=== PATIENT | female | born 1960 | race Caucasian/White ===

== ENCOUNTER 2019-01-15 11:25 | Outpatient (CLI) | payer MEDICARE, OTHER | END 2019-01-15 11:26 | disposition home or self-care (01) | LOC: DTY/OP 11:25 | PROVIDERS: ATTEND Surgery | DX: E66.01 Morbid (severe) obesity due to excess calories (principal) | CPT/HCPCS: 97802 ==

== ENCOUNTER 2020-07-18 13:49 | Outpatient (CLI) | payer OTHER | END 2020-07-18 13:50 | disposition home or self-care (01) | LOC: DTY/OP 13:49 | PROVIDERS: ATTEND Surgery | DX: E66.01 Morbid (severe) obesity due to excess calories (principal) | CPT/HCPCS: 97802 ==

== ENCOUNTER 2020-09-14 10:00 | Inpatient (IN) | payer MEDICARE, OTHER ==
[2020-09-18 10:01] VITALS: BMI 44.9
[2020-09-19] MEDS ORDERED: Heparin 5,000 UNITS/ML VIAL ONE (06:22)
[2020-09-19] MEDS ORDERED: Fentanyl 250 MCG/5 ML VIAL ONE (06:48)
[2020-09-19] MEDS ORDERED: Lidocaine 2% w/Epinephrine 1:200K 20 ML VIAL ONE (07:07)
[2020-09-19] MEDS ORDERED: Bupivacaine 0.25% HCL 30 ML VIAL ONE (07:07)
[2020-09-19] MEDS ORDERED: PROPOFOL 200 MG/20 ML VIAL ONE (07:22)
[2020-09-19] MEDS ORDERED: Dexamethasone 20 MG/5 ML VIAL ONE (07:22)
[2020-09-19] MEDS ORDERED: Lidocaine 1% PF 5 ML VIAL ONE (07:22)
[2020-09-19] MEDS ORDERED: PHENYLEPHRINE-NS 100 MCG/ML 10 ML SYRINGE ONE (07:22)
[2020-09-19] MEDS ORDERED: Ondansetron PF 4 MG/2 ML Vial ONE (07:22)
[2020-09-19] MEDS ORDERED: Rocuronium Bromide 10 MG/ML (10ML VIAL) ONE (07:22)
[2020-09-19] MEDS ORDERED: Glycopyrrolate 0.2 MG/ML 5 ML SYRINGE ONE (07:22)
[2020-09-19] MEDS ORDERED: Hydrocodone-Acetamin 15 ML UDCUP PO PRN (09:30)
[2020-09-19] MEDS ORDERED: Dextrose 5% in Water 1,000 ML IV PRN (09:30)
[2020-09-19] MEDS ORDERED: Dextrose 50% Abboject 50 ML SYRINGE SLOW IVP PRN (09:30)
[2020-09-19] MEDS ORDERED: Promethazine HCl 25 MG/ML VIAL IM PRN ×3 (09:30→10:14)
[2020-09-19] MEDS ORDERED: Ondansetron PF 4 MG/2 ML Vial IVP PRN ×2 (09:30→10:14)
[2020-09-19] MEDS ORDERED: hydrALAZINE 20 MG/ML VIAL SLOW IVP PRN (09:30)
[2020-09-19] MEDS ORDERED: diphenhydrAMINE 50 MG/ML VIAL IVP PRN ×2 (09:30→10:14)
[2020-09-19] MEDS ORDERED: Ondansetron HCl/PF 4 MG/2 ML Vial IVP PRN (09:32)
[2020-09-19] MEDS ORDERED: Promethazine HCl 25 MG/ML VIAL SLOW IVP PRN (09:32)
[2020-09-19] MEDS ORDERED: Fentanyl 100 MCG/2 ML VIAL ONE ×3 (09:34→10:37)
[2020-09-19] MEDS ORDERED: Naloxone HCl 0.4 mg/ml Vial IV PRN (10:14)
[2020-09-19] MEDS ORDERED: fentaNYL Citrate/PF 2,000 MCG in Sodium Chloride 0.9% 60 ML IV PRN (10:14)
[2020-09-19] MEDS ORDERED: diphenhydrAMINE 50 MG/ML VIAL IM PRN (10:14)
[2020-09-19] MEDS ORDERED: Zolpidem Tartrate 5 MG TAB PO PRN (10:14)
[2020-09-19] MEDS ORDERED: Communication Order-Pharmacy FS SCH (10:15)
[2020-09-19] MEDS ORDERED: Sodium Chloride 0.9% (PF) 10 ML VIAL FS PRN (10:15)
[2020-09-19] MEDS: D5 1/2 NS w/20 mEq KCL 1,000 ML IV SCH ×3 (12:55→20:42)
[2020-09-19] MEDS: Trospium 20 MG TAB PO SCH (20:28)
[2020-09-19] MEDS ORDERED: Enoxaparin Sodium 40 MG/0.4 ML SYRINGE SC SCH (21:00)
[2020-09-19] MEDS ORDERED: Montelukast Sodium 10 mg Tablet PO SCH (21:00)
[2020-09-20] MEDS: diphenhydrAMINE 25 MG CAP PO PRN ×3 (03:16→09:27)
[2020-09-20] MEDS: D5 1/2 NS w/20 mEq KCL 1,000 ML IV SCH (05:32)
[2020-09-20 05:34] LABS: #Eosinphils 0.1 thou/uL (0.0-0.7); #Lymphocytes 1.7 thou/uL (1.20-3.40); #Monocytes 1.7 thou/uL (0.11-0.59); #Neutrophils 12.5 thou/uL (1.40-6.50); %Basophils 0.1 % (0.0-1.0); %Eosinophils 0.3 % (0.0-10.0); %Lymphocytes 10.8 % (21.0-51.0); %Monocytes 10.6 % (0.0-10.0); %Neutrophils 78.1 % (42.0-75.0); Hemoglobin 12.5 g/dL (12.0-16.0); Mean Corpuscular HGB CONC 32.4 g/dL (32.0-36.0); Mean Corpuscular Hemoglobin 28.9 pg (27.0-31.0); Mean Platelet Volume 7.9 fL (7.4-10.4); Platelet Count 233 thou/uL (130-400); RBC Distribution Width 13.4 % (11.5-14.5); Red Blood Cell (RBC) Count 4.32 mill/uL (4.20-5.40)
[2020-09-20 05:50] LABS: Anion Gap 12 mmol/L (10-20); BUN (Urea Nitrogen) 16 mg/dL (9.8-20.1); Calc. Creatinine Clearance 172 mL/min (70-130); Calcium 8.4 mg/dL (7.8-10.44); Carbon Dioxide 19 mmol/L (22-29); Chloride 106 mmol/L (98-107); Glucose 100 mg/dL (70-105); Potassium 4.6 mmol/L (3.5-5.1); Sodium 132 mmol/L (136-145)
[2020-09-20] MEDS ORDERED: Hydrocodone-Acetamin 15 ML UDCUP PO PRN (07:47)
[2020-09-20] MEDS: Trospium 20 MG TAB PO SCH (08:33)
[2020-09-20] MEDS ORDERED: Lisinopril 2.5 MG TAB PO SCH (09:00)
[2020-09-20] MEDS ORDERED: FLUoxetine HCl 20 MG CAP PO SCH (09:00)
[2020-09-20] MEDS ORDERED: lamoTRIgine 25 MG TAB PO SCH (09:00)
[2020-09-20] MEDS ORDERED: Pantoprazole 40 MG VIAL IVP SCH (09:00)
[2020-09-20 11:47] VITALS: BP 103/67; TEMP 98
== END 2020-09-20 11:45 | disposition home or self-care (01) | DRG 620 ==
LOC: SURG A 09-19 05:51 → EDSTATUS 09-19 10:00 → SURG A 09-19 12:44
PROVIDERS: ADMIT Surgery; ATTEND Surgery
PROC: 0D164ZA Bypass Stomach to Jejunum, Percutaneous Endoscopic Approach (ICD-10-PCS; principal; 2020-09-19)
PROC: 0BQT4ZZ Repair Diaphragm, Percutaneous Endoscopic Approach (ICD-10-PCS; 2020-09-19)
DX: E66.01 Morbid (severe) obesity due to excess calories (principal); E87.1 Hypo-osmolality and hyponatremia; I50.32 Chronic diastolic (congestive) heart failure; I10 Essential (primary) hypertension; K21.9 Gastro-esophageal reflux disease without esophagitis; F32.9 Major depressive disorder, single episode, unspecified; G43.909 Migraine, unspecified, not intractable, without status migrainosus; G89.29 Other chronic pain; D64.9 Anemia, unspecified; M19.90 Unspecified osteoarthritis, unspecified site; E78.00 Pure hypercholesterolemia, unspecified; K44.9 Diaphragmatic hernia without obstruction or gangrene; D72.829 Elevated white blood cell count, unspecified; L29.8 Other pruritus; Z98.51 Tubal ligation status; Z88.6 Allergy status to analgesic agent; Z79.82 Long term (current) use of aspirin; Z68.42 Body mass index [BMI] 45.0-49.9, adult; Z91.048 Other nonmedicinal substance allergy status; Z90.49 Acquired absence of other specified parts of digestive tract; Z88.8 Allergy status to other drugs, medicaments and biological substances; Z86.73 Personal history of transient ischemic attack (TIA), and cerebral infarction without residual deficits
CPT/HCPCS: 36415; 80048; 85025; 94760; C9113; J0690; J1100; J1644; J1650; J2405; J2704; J3010; J3480; Q0163; S0020

== ENCOUNTER 2020-09-14 10:28 | Outpatient (CLI) | payer MEDICARE, OTHER ==
[2020-09-14 11:26] LABS: #Basophils 0.1 10x3/uL (0.0-0.2); #Eosinphils 0.2 10x3/uL (0.0-0.5); #Monocytes 0.9 10x3/uL (0.0-1.1); #Neutrophils 3.5 10x3/uL (1.5-8.4); %Basophils 0.8 % (0.0-2.0); %Lymphocytes 26.6 % (18.0-47.0); %Monocytes 13.9 % (0.0-10.0); %Neutrophils 55.4 % (40.0-75.0); Hemoglobin 13.3 g/dL (12.0-15.5); Mean Corpuscular HGB CONC 33.4 g/dL (32.0-36.0); Mean Corpuscular Hemoglobin 28.3 pg (27.0-33.0); Mean Corpuscular Volume 84.7 fl (81.6-98.3); Mean Platelet Volume 9.9 fl (7.4-10.4); Platelet Count 267 10x3/uL (150-450); RBC Distribution Width 14.9 % (11.5-14.5); White Blood Cell (WBC) Count 6.2 10x3/uL (3.5-10.5)
[2020-09-14 11:55] LABS: ALT (SGPT) 20 U/L (8-55); AST (SGOT) 16 U/L (5-34); Albumin 4.3 g/dL (3.5-5.0); Alkaline Phosphatase 77 U/L (40-110); Anion Gap 9 mmol/L (10-20); BUN (Urea Nitrogen) 31 mg/dL (9.8-20.1); Bilirubin, Total 0.3 mg/dL (0.2-1.2); Calc. Creatinine Clearance 0 mL/min (70-130); Calcium 9.4 mg/dL (7.8-10.44); Carbon Dioxide 29 mmol/L (22-29); Chloride 103 mmol/L (98-107); Globulin 2.8 g/dL (2.4-3.5); Glucose 81 mg/dL (70-105); Potassium 4.6 mmol/L (3.5-5.1); Protein, Total 7.1 g/dL (6.0-8.3); Sodium 136 mmol/L (136-145)
[2020-09-14 18:01] LABS: SARS-CoV-2 PCR by NAA Not Detected (NotDetected)
== END 2020-09-14 10:29 | disposition home or self-care (01) ==
LOC: LABBT 10:28
PROVIDERS: ATTEND Surgery
DX: Z01.818 Encounter for other preprocedural examination (principal); E66.01 Morbid (severe) obesity due to excess calories; Z20.822 Contact with and (suspected) exposure to COVID-19
CPT/HCPCS: 71046; 80053; 83036; 85025; 93005; U0003; U0005; 87635; 93010